=== PATIENT | female | born 1945 | race Caucasian/White ===

== ENCOUNTER 2016-03-13 15:19 | Emergency (ER) | payer MEDICARE, SELFPAY ==
[2016-03-13 15:20] VITALS: BMI 27.3
[2016-03-13 15:47] VITALS: TEMP 97.5
[2016-03-13] MEDS ORDERED: LIDOCAINE 2% 5 ML (PRESERVATIVE FREE) VIAL INF ONE (15:56)
--- NOTE | 2016-03-13 15:58 | EDPRACDOC ---
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 NO LOC. LACERATION TO POSTERIOR HEAD. MILD HEADACHE. NO N/V Pain Severity: Reports: Mild Injuries/Pain Location: Reports: head Reason for Fall: Reports: slipped Loss of Consciousness: no loss of consciousness Allergies/Adverse Reactions: Allergies amoxicillin [Amoxicillin] Allergy (Verified 03/13/16 15:47) Itching ciprofloxacin [From Cipro] Allergy (Verified 03/13/16 15:47) Unknown pt reports is causes "muscle breakdown" ciprofloxacin HCl [From Cipro] Allergy (Verified 03/13/16 15:47) Unknown pt reports is causes "muscle breakdown" clopidogrel bisulfate [From Plavix] Allergy (Verified 03/13/16 15:47) Unknown POSSIBLE BLEEDING Penicillins Allergy (Verified 03/13/16 15:47) Itching Home Medications: Ambulatory Orders Metoprolol Tartrate [Lopressor] 25 mg PO DAILY 07/04/13 Ezetimibe [Zetia] 10 mg PO QHS 09/24/13 Sertraline HCl [Zoloft] 200 mg PO QHS 10/24/13 Atorvastatin Calcium [Lipitor] 80 mg PO QHS 10/22/15 Amlodipine [Norvasc] 10 mg PO DAILY 03/13/16 Aspirin/Calcium Carbonate/Mag [Aspirin Buffered 325 mg Tab] 325 mg PO DAILY 12/18 Folic Acid 1 mg PO QHS 03/13/16 Heparin Sodium, Porcine [Heparin] 5,000 units SQ TID 03/13/16 Levetiracetam [Keppra] 500 mg PO Q12H 03/13/16 Pantoprazole Sodium [Protonix] 40 mg PO DAILY 03/13/16 Potassium Chloride 20 meq PO 1600 03/13/16 Sennosides [Senna Laxative] 25 mg PO DAILY PRN 03/13/16 ED Past Medical History - History Reviewed Yes Nurses notes reviewed and agree except as marked Travel Outside of [place] in the Last 3 Months?: No - Patient Medical History Neurological History: Reports: Cerebrovascular Accident (CVA X 2 2015, TIA IN PAST.) Cardiac History: Reports: Hypertension, Stress Test (Stress Echo 2014: EF 60-65% , no ischemia. Normal contractility and function), Hypercholesterolemia, Syncope Respiratory History: Reports: COPD (does not use inhalers), Chronic Bronchitis GI/ History: Reports: Gastroesophageal Reflux (EGD 10/2013 Dr. Maldonado: Deep antral ulcer, hiatal h, esoph stricture.), Ulcer (Had bleeding ulcer associated with taking Plavix.) Musculoskeletal History: Reports: Arthritis (HIP), Rheumatoid Arthritis (both hips and knees) Psychological History: Reports: Depression. Denies: Substance Use Disorder Systemic History: Denies: Cancer Surgical History: Reports: Other (Thyroid nodule biopsy (benign). Tubal ligation.) - Family Medical History Reports: Hypertension, Stroke (Father). Denies: Diabetes, Cancer, Cardiac Disorders - Social Medical History Smoking Status: Never smoker Social History: Denies: Substance Use Disorder ETOH: None Substance Abuse: None Lives In: [facility] Facility EDM Review of Systems - Review of Systems ROS Negative Except as Marked: Yes All systems reviewed and were negative except as marked Constitutional: No Symptoms Reported. negative: Fever, Chills, Weakness, Fatigue, Loss of Appetite Eyes: No Symptoms Reported. negative: Redness, Blurred Vision, Double Vision, Discharge, Pain, Light Sensitive, Photophobia Ears: No Symptoms Reported. negative: Pain, Hearing Loss, Drainage, Ear Pulling Throat: No Symptoms Reported. negative: Pain, Swelling Nose: No Symptoms Reported. negative: Congestion, Bleeding, Discharge, Injection, Swelling, Deformity, Ecchymosis, Tender, Abrasion, Laceration Mouth: No Symptoms Reported. negative: Pain, Drooling Respiratory: No Symptoms Reported. negative: Cough, Brassy Cough, Barky Cough, Shortness of Breath, Wheezing, Hemoptysis Cardiovascular: No Symptoms Reported. negative: Chest Pain, Palpitations, Syncope, Edema, Orthopnea, PND, Skin Mottling, Cyanosis Gastrointestinal: No Symptoms Reported. negative: Pain, Constipation, Nausea, Vomiting, Diarrhea, Melena, Formula Intolerance Genitourinary: No Symptoms Reported. negative: Dysuria, Hematuria, Frequency, Discharge, Bleeding, Testicular Pain, Neurological: No Symptoms Reported. negative: Headache, Dizziness, Seizure, Numbness, Weakness, Speech Difficulty, Gait Difficulty Musculoskeletal: No Symptoms Reported. negative: Neck, Chestwall, Ribs, Back, Shoulder, Arm, Elbow, Forearm, Wrist, Hand, Pelvis, Hip, Femur, Knee, Leg, Ankle , Foot Integumentary: Wound. negative: Bruising, Itching, Rash Allergic/Immunologic: No Symptoms Reported. negative: Hives, Itching Hematologic: No Symptoms Reported. negative: Lymphadenopathy, Easy Bruising, Easy Bleeding Endocrine: No Symptoms Reported. negative: Weight Gain, Weight Loss Psychiatric: No Symptoms Reported. negative: Anxiety, Depression, Hallucinations, Insomnia, Suicidal - Physical Exam Constitutional: Alert (Awake) Oriented to: Time, Person, Place Last recorded Vital Signs: Last Vital Signs Temp 97.5 F 03/13/16 15:20 Pulse 77 03/13/16 15:20 Resp 18 03/13/16 15:20 BP 131/67 03/13/16 15:20 Pulse Ox 96 03/13/16 15:20 Oxygen Pulse Oxygen Saturation 96 O2 Device Oxygen Flow Rate Fraction of Inspired Oxygen ( FIO2) - HEENT Head: Laceration (POSTERIOR SCALP 4CM) Eye Exam: Normal (PERRL, EOMI, Sclera white) Oropharynx: Normal (Pharynx:Moist without exudate,Gums-no swelling) Tympanic Membrane: Normal ENT EAC: Normal TMJ: Normal Nose: No Symptoms Reported (septum midline) Neck: Normal (FROM, trachea at midline) - Respiratory/Cardiovascular Respiratory: Normal - CTA (BBS clear to auscultation without adventitious sounds ) Cardiovascular: Normal (RRR without murmur, gallop or rub) - GI Auscultation: Normal (NABS) Palpation: Normal (Soft,No rebound or guarding, non distended) Tenderness: Non tender Rosales's Sign: Negative - Musculoskeletal Back: Normal (Non-Tender) Extremities: Normal (Normal tone, Pulses 2+ No cyanosis or edema, FROM) - Integumentary Skin: Normal, Warm, Dry Lymphatics: Normal (no adenopathy) - Neurologic Memory Impaired: Normal Motor Function: Normal (Normal tone, Pulses 2+ No cyanosis or edema, FROM) Cranial Nerve: Normal (CN II-X11 intact sensation, strength 5/5) Cerebellar: Normal Mood Description: Normal Perception: Normal ED Procedures - Suture/Laceration Suture #1 Posterior Head Wound Length (cm): 4 Wound's Depth, Shape: superficial Wound Explored: clean Irrigated w/ Saline (ccs): 1000 Betadine Prep?: Yes Anesthesia: 1% Lidocaine Volume Anesthetic (ccs): 5 Wound Debrided: minimal Wound Repaired With: [place] (7) Number of Sutures: 7 Layer Closure?: No Sterile Dressing Applied?: Yes Decision Time to Discharge: 17:23 - Departure Yes I personally saw and evaluated the patient. Disposition: Home Condition: Good Final Diagnosis: Scalp laceration Qualifiers: Encounter type: initial encounter Qualified Code(s): S01.01XA - Laceration without foreign body of scalp, initial encounter Instructions: RICE: Routine Care for Injuries, Laceration (ED), Staple Care (ED ) Education/Counseling Given To: Patient, Family Member Education/Counseling Given Regarding: Diagnosis, Treatment, Prognosis, Follow Up Referrals: None,No Provider [Primary Care Provider] - One Week Ruel Lino MD [Staff Physician] - One Week
[2016-03-13] MEDS ORDERED: OXYCODONE HCL 5 MG TABLET PO ONE (15:59)
--- NOTE | 2016-03-13 16:48 | DIRPT ---
CLINICAL DATA: Head injury from falling with posterior laceration and loss of consciousness. EXAM: CT HEAD WITHOUT CONTRAST CT CERVICAL SPINE WITHOUT CONTRAST TECHNIQUE: Multidetector CT imaging of the head and cervical spine was performed following the standard protocol without intravenous contrast. Multiplanar CT image reconstructions of the cervical spine were also generated. COMPARISON: Head CT 10/22/2015. MRI brain 10/24/2015. FINDINGS: CT HEAD FINDINGS There is no evidence of acute intracranial hemorrhage, mass lesion, brain edema or extra-axial fluid collection. There is atrophy with chronic periventricular white matter disease. Left frontal lobe subcortical encephalomalacia appears mildly progressive. No evidence of hydrocephalus. There is soft tissue swelling in the right parietal scalp. The underlying calvarium appears intact. The visualized paranasal sinuses, mastoid air cells and middle ears are clear. CT CERVICAL SPINE FINDINGS The cervical spine demonstrates straightening and a mild degenerative anterolisthesis at C2-3 and C3-4. There is no evidence of acute fracture or traumatic subluxation. There are moderate asymmetric facet degenerative changes on the left at C2-3 and C3-4. There is some associated foraminal narrowing. No acute soft tissue findings are apparent within the neck. Extensive carotid calcifications are present bilaterally. There is nodularity of the right thyroid gland with components measuring 1.7 cm on image 56 and 1.7 cm on image 63. Patient underwent previous right thyroid nodule FNA 10/19/2013. Emphysematous changes are present at the lung apices with asymmetric right apical scarring. IMPRESSION: 1. Right posterior scalp soft tissue laceration. No acute intracranial or calvarial findings. 2. Stable atrophy and chronic small vessel ischemic changes. Severe carotid atherosclerosis in the neck. 3. No evidence of acute cervical spine fracture, traumatic subluxation or static signs of instability. 4. Cervical spondylosis as described. 5. Grossly stable right thyroid nodularity. Electronically Signed By: eJovanny Ng M.D. On: 03/13/2016 16:45
[2016-03-13 18:00] VITALS: BP 129/61; PULSE 71
== END 2016-03-13 17:51 | disposition home or self-care (01) ==
LOC: ED 15:19
DX: S01.01XA Laceration without foreign body of scalp, initial encounter (principal); W01.0XXA Fall on same level from slipping, tripping and stumbling without subsequent striking against object, initial encounter; Y93.9 Activity, unspecified; S06.9X1A Unspecified intracranial injury with loss of consciousness of 30 minutes or less, initial encounter
CPT/HCPCS: 12002; 70450; 72125; 99284; A9270; J2001; J3490